=== PATIENT | male | born 1945 | race Caucasian/White ===

== ENCOUNTER 2022-02-28 11:08 | Outpatient (CLI) | payer MEDICARE, SELFPAY ==
[2022-02-28 09:46] LABS: Albumin* 4.7 g/dL (3.3-5.0); Chloride* 102 mmol/L (96-114); Sodium* 139 mmol/L (135-149)
[2022-02-28 09:47] LABS: Potassium* 4.7 mmol/L (3.6-5.1)
[2022-02-28 09:48] LABS: Cholesterol* 138 mg/dL (90-199)
[2022-02-28 09:49] LABS: Aspartate Amino Transferase* 29 U/L (12-35); Bilirubin Total* 0.7 mg/dL (0.1-1.5); Blood Urea Nitrogen* 23 mg/dL (7-30); Carbon Dioxide* 25 mmol/L (20-32); Creatinine* 1.1 mg/dL (0.5-1.5); Estimated Glomerular Filt Rate 69 ml/min; Glucose* 114 mg/dL (60-115); Total Protein* 7.6 g/dL (6.0-8.3); Triglycerides* 295 mg/dL (40-149)
[2022-02-28 09:50] LABS: Alanine Aminotransferase* 20 U/L (4-50); Alkaline Phosphatase* 80 U/L (40-150); Calcium* 9.8 mg/dL (8.4-10.6); HDL Cholesterol* 35 mg/dL (>=40); LDL Cholesterol Calculated 44 mg/dL (<100)
[2022-02-28 10:18] LABS: PSA Screen* 1.36 ng/mL (0.10-4.00)
== END 2022-02-28 11:09 | disposition home or self-care (01) ==
PROVIDERS: PCP Family Medicine; Visit Provider Family Medicine
DX: Z00.00 Encounter for general adult medical examination without abnormal findings (principal); I25.10 Atherosclerotic heart disease of native coronary artery without angina pectoris; R73.01 Impaired fasting glucose; E78.5 Hyperlipidemia, unspecified; I10 Essential (primary) hypertension; M10.9 Gout, unspecified; Z12.5 Encounter for screening for malignant neoplasm of prostate
CPT/HCPCS: 80053; 80061; 84153

== ENCOUNTER 2022-06-27 09:17 | Outpatient (CLI) | payer MEDICARE, SELFPAY ==
--- NOTE | 2022-06-27 09:15 | MR_ITS ---
[address] [address] Phone:?[phone] Fax:?[phone] Referring Physician Information: Kannan Livingston M.D. [address] [place] [id number] Phone:?[phone] Fax:?[phone] Patient:?Anthony Avila D.O.B:?1945 Sex:?Male Phone:?[phone] [facility] MRN:?[id number] Exam Date:?06/27/2022 ? EXAM: MRI OF THE LEFT SHOULDER CLINICAL INFORMATION: The patient is a 76-year-old with left shoulder pain. Evaluate rotator cuff. PRIOR SURGERY: None reported. COMPARISON STUDIES: There are no prior studies available for comparison. TECHNICAL INFORMATION: Using a 1.5T MR scanner and a localizing shoulder surface coil: 3.0 mm?coronal obliques: PD, T2, STIR 3.0 mm?sagittal obliques: PD, T2 3.0 mm?axials: PD, T2 FINDINGS: Articular/Extraarticular collections: Effusion: Mild to moderate. Subacromial/subdeltoid: Minimal fluid is seen within the subacromial/subdeltoid bursa. Subcoracoid: No evidence for bursitis. Osseous structures: Proximal humerus: Cortical irregularity and subcortical cystic changes can be seen involving the posterior aspect of the greater tuberosity region, in keeping with the infraspinatus tendinopathy discussed below. There is no evidence for greater or lesser tuberosity fracture. No Hill-Sachs or reverse Hill-Sachs lesion is identified. Glenoid: No acute bony abnormality of the glenoid fossa or glenoid neck can be seen. Acromioclavicular joint: Moderate changes of acromioclavicular joint arthrosis are present and can be seen to best advantage on coronal series 4 image 12 and on sagittal series 8 image 17. Coracoacromial arch: Acromion morphology: Type II. No evidence for os acromiale. Acromiohumeral space: Within normal limits. Coracohumeral space: Within normal limits. Rotator cuff and deltoid: Supraspinatus: Moderate changes of supraspinatus tendinosis can be seen with intrasubstance splitting of the supraspinatus tendon fibers. The findings are seen to best advantage on coronal series 4 image 13. No full-thickness tearing or retraction is seen. No atrophic changes of the supraspinatus muscle belly are present. Infraspinatus: Mild to moderate infraspinatus tendinosis can be seen. There is no evidence for full or partial-thickness tearing. No atrophic changes of the infraspinatus muscle belly are identified. Teres minor: No evidence for tendinosis, tearing, or associated muscle belly atrophy. Subscapularis: Mild to moderate subscapularis tendinosis can be seen. There is no evidence for full or partial-thickness tearing. No atrophic changes of the subscapularis muscle belly are noted. Deltoid: No evidence for strain or tearing. Biceps tendon: The intra-articular and biceps sulcus portions of the biceps tendon are normal. There is no evidence for rupture, dislocation, or subluxation. Glenohumeral joint and labrum: Articular Cartilage: No chondral injuries along the articular surfaces of the glenohumeral articulation can be seen. No osteoarthritic changes are identified. Labrum: Vertical tearing of the superior portion of the glenoid labrum is present and can be seen on coronal series 4 image 16. Additional degeneration, blunting, and irregularity of the remainder of the labrum can be seen. No paralabral ganglion cyst formation is noted. Capsular Soft Tissues: Thickening of the capsular structures of the glenohumeral articulation can be seen in the region of the axillary recess and rotator cuff interval. The findings are consistent with changes of adhesive capsulitis. CONCLUSION: 1. Moderate supraspinatus tendinosis with intrasubstance living. No full- thickness tearing or retraction is seen. 2. Mild to moderate infraspinatus and subscapularis tendinosis. 3. Thickening of the capsular structures, in keeping with changes of adhesive capsulitis. 4. Moderate acromioclavicular joint arthrosis. 5. Degeneration of the glenoid labrum with tearing of the superior portion. 6. No osteoarthritic changes of the glenohumeral articulation are present. [facility] Electronically signed on 06/27/2022 1:57:00 PM by Jayce Traylor M.D.
== END 2022-06-27 09:18 | disposition home or self-care (01) ==
LOC: MRI 09:18
PROVIDERS: PCP Family Medicine; Visit Provider Orthopaedic Surgery
DX: M25.512 Pain in left shoulder (principal); M75.102 Unspecified rotator cuff tear or rupture of left shoulder, not specified as traumatic; M75.02 Adhesive capsulitis of left shoulder
CPT/HCPCS: 73221

== ENCOUNTER 2022-08-31 08:45 | Outpatient (RCR) | payer MEDICARE, SELFPAY | END 2022-08-31 12:04 | disposition home or self-care (01) | PROVIDERS: PCP Family Medicine; Visit Provider Orthopaedic Surgery | DX: M19.012 Primary osteoarthritis, left shoulder (principal); M67.912 Unspecified disorder of synovium and tendon, left shoulder; Z51.89 Encounter for other specified aftercare | CPT/HCPCS: 97110; 97140; 97162 ==

== ENCOUNTER 2023-03-06 08:17 | Outpatient (CLI) | payer MEDICARE, SELFPAY | END 2023-03-06 08:18 | disposition home or self-care (01) | LOC: NFLDREF 03-08 10:37 | PROVIDERS: PCP Family Medicine; Referring Provider Family Medicine; Visit Provider Family Medicine | DX: E78.5 Hyperlipidemia, unspecified (principal); R73.03 Prediabetes; Z12.5 Encounter for screening for malignant neoplasm of prostate | CPT/HCPCS: 80053; 80061; 84153 ==

== ENCOUNTER 2023-03-21 08:00 | Outpatient (CLI) | payer MEDICARE, SELFPAY ==
--- NOTE | 2023-03-21 08:15 | CRLHL7_ITS ---
For Patients: As a result of the Century Cures Act, medical imaging exams and procedure reports are released immediately into your electronic medical record. You may view this report before your referring provider. If you have questions, please contact your health care provider. Indication: Low back pain. Technique: Multiplanar, multisequence MRI of the lumbar spine was performed without intravenous contrast. Comparison: None relevant available. Findings: There are 5 lumbar type vertebral segments identified. The vertebral body heights are maintained without evidence of fracture. There is no discrete T1 hypointense marrow infiltrating process. The conus medullaris terminates at T11-12. Cauda equina appears unremarkable. T12-L1: No spinal canal or neural foraminal stenosis. L1-2: Disc degeneration. No spinal canal or neural foraminal narrowing. Mild facet arthropathy. L2-3: Disc degeneration. Disc bulge with superimposed right subarticular disc protrusion resulting in [id number] right lateral recess narrowing with encroachment upon the descending right L3 nerve. Overall mild spinal canal narrowing. [id number] right and mild left neural foraminal narrowing. Moderate facet arthropathy. L3-4: Disc degeneration. Disc bulge with facet hypertrophy resulting in mild spinal canal narrowing. Mild neural foraminal narrowing secondary to disc bulging facet hypertrophy. Moderate facet arthropathy. L4-5: Disc degeneration. Endplate and facet hypertrophy result in moderate left lateral recess narrowing with encroachment upon the descending left L5 nerve. Overall mild spinal canal narrowing. Mild neural foraminal narrowing. Moderate facet arthropathy. L5-S1: Disc degeneration. Disc bulge with superimposed central and right subarticular disc protrusion which abuts, however does not compress the descending right S1 nerve. Mild neural foraminal narrowing. Moderate facet arthropathy. Moderate sacroiliac joint osteoarthritis. Impression: 1. At L2-3, right subarticular disc protrusion encroaches upon the descending right L3 nerve. Mild to moderate right neural foraminal narrowing. 2. At L4-5, moderate left lateral recess narrowing with encroachment upon the descending left L5 nerve. 3. At L5-S1, central and right subarticular disc protrusion abuts, however does not compress the descending right S1 nerve. 4. Milder spondylosis at the remaining lumbar levels. Dictated by Manny Alejandre MD @ 03/21/2023 12:23:48 PM (Electronically Signed)
== END 2023-03-21 08:01 | disposition home or self-care (01) ==
LOC: MRI 08:01
PROVIDERS: PCP Family Medicine; Visit Provider Internal Medicine
DX: M54.50 Low back pain, unspecified (principal); M51.26 Other intervertebral disc displacement, lumbar region; M51.27 Other intervertebral disc displacement, lumbosacral region; M47.896 Other spondylosis, lumbar region
CPT/HCPCS: 72148